=== PATIENT | female | born 2000 | race Caucasian/White ===

== ENCOUNTER 2019-01-29 22:14 | Emergency (ER) | payer OTHER ==
[2019-01-29] MEDS ORDERED: Metoclopramide HCl 10 MG/2 ML VIAL ONE (23:33)
[2019-01-29] MEDS ORDERED: diphenhydrAMINE 50 MG/ML VIAL ONE (23:33)
[2019-01-29] MEDS ORDERED: Ketorolac Tromethamine 30 MG/ML VIAL ONE (23:33)
== END 2019-01-30 00:13 | disposition home or self-care (01) ==
LOC: ERS 22:14
DX: R51 Headache (principal); Z79.899 Other long term (current) drug therapy
CPT/HCPCS: 96365; 96375; J1200; J1885; J2765

== ENCOUNTER 2019-04-26 16:20 | Emergency (ER) | payer OTHER ==
[2019-04-26] MEDS ORDERED: Metoclopramide HCl 10 MG/2 ML VIAL ONE (17:17)
[2019-04-26] MEDS ORDERED: diphenhydrAMINE 50 MG/ML VIAL ONE (17:17)
[2019-04-26 17:57] LABS: Bilirubin Negative (Negative); Blood, Urine Negative (Negative); Clarity Turbid (Clear); Glucose, Urine (Dipstick) Normal (Negative); Leukocyte Negative Leu/uL (Negative); Nitrite Negative (Negative); Protein, Urine (Dipstick) Negative (Neg-Trace); Urobilinogen Normal mg/dL (Less than 2)
[2019-04-26 17:59] LABS: Pregnancy Test - Urine (BHCG) Negative (Negative); Pregu Control Background? CLEAR/WHITE (CLR/WHITE); Pregu Control Bar Appear? YES (CONTROL BAR); Specific Gravity 1.011 (1.002-1.036)
[2019-04-26] MEDS ORDERED: Ketorolac Tromethamine 30 MG/ML VIAL ONE (18:25)
== END 2019-04-26 19:18 | disposition home or self-care (01) ==
LOC: ERS 16:20
DX: R51 Headache (principal)
CPT/HCPCS: 81003; 81025; 96365; 96375; J1200; J1885; J2765

== ENCOUNTER 2020-01-07 18:09 | Emergency (ER) | payer OTHER ==
[2020-01-07] MEDS ORDERED: Metoclopramide HCl 10 MG/2 ML VIAL ONE (18:33)
[2020-01-07] MEDS ORDERED: Ondansetron PF 4 MG/2 ML Vial ONE (18:33)
[2020-01-07] MEDS ORDERED: diphenhydrAMINE 50 MG/ML VIAL ONE ×2 (18:34→18:50)
[2020-01-07] MEDS ORDERED: Ketorolac Tromethamine 30 MG/ML VIAL ONE (18:34)
[2020-01-07] MEDS ORDERED: Dexamethasone 4 mg/ml Vial ONE (19:50)
== END 2020-01-07 19:55 | disposition home or self-care (01) ==
LOC: ERS 18:09
DX: G43.919 Migraine, unspecified, intractable, without status migrainosus (principal); Z79.899 Other long term (current) drug therapy
CPT/HCPCS: 96374; 96375; J1100; J1200; J1885; J2405; J2765

== ENCOUNTER 2020-06-13 13:54 | Emergency (ER) | payer OTHER ==
[2020-06-13] MEDS ORDERED: diphenhydrAMINE 25 MG CAP ONE (15:08)
[2020-06-13] MEDS ORDERED: predniSONE 20 MG TAB ONE (15:08)
== END 2020-06-13 18:25 | disposition home or self-care (01) ==
LOC: ERS 13:54
DX: K13.0 Diseases of lips (principal); R06.00 Dyspnea, unspecified; G43.909 Migraine, unspecified, not intractable, without status migrainosus; Z79.899 Other long term (current) drug therapy
CPT/HCPCS: 99283; J7512; Q0163

== ENCOUNTER 2021-01-06 10:54 | Emergency (ER) | payer OTHER ==
[2021-01-06] MEDS ORDERED: Metoclopramide HCl 10 MG/2 ML VIAL ONE (11:29)
[2021-01-06] MEDS ORDERED: Dexamethasone 10 MG/ML VIAL ONE (11:29)
[2021-01-06] MEDS ORDERED: Ketorolac Tromethamine 30 MG/ML VIAL ONE (11:29)
[2021-01-06] MEDS ORDERED: diphenhydrAMINE 50 MG/ML VIAL ONE (11:29)
== END 2021-01-06 12:30 | disposition home or self-care (01) ==
LOC: ERS 10:54
DX: G43.909 Migraine, unspecified, not intractable, without status migrainosus (principal)
CPT/HCPCS: 96374; 96375; J1100; J1200; J1885; J2765